=== PATIENT | male | born 1950 | race Caucasian/White ===

== ENCOUNTER 2025-06-03 16:35 | Inpatient (IN) | payer MEDICARE, MEDICAID ==
[~2025-06-03] VITALS: Ht 170.2 cm; Wt 78.9 kg
[2025-06-03 17:27] LABS: PLATELET COUNT (AUTO) 209 K/uL (152-348); RED BLOOD CELL COUNT(AUTO) 2.77 MIL/uL (4.06-5.63); RED CELL DISTRIBUTION WIDTH 13.4 % (12.1-16.2); WHITE BLOOD COUNT (AUTO) 4.8 K/uL (3.6-10.2)
[2025-06-03 17:39] LABS: ASPARTATE AMINOTRANSFERASE 10 U/L (15-37); CREATININE 1.4 mg/dL (0.6-1.3); SODIUM SERUM 138 mmol/L (136-145); TOTAL PROTEIN, SERUM 6.3 g/dL (6.4-8.2); UREA NITROGEN, BLOOD 23 mg/dL (7-18)
[2025-06-03] MEDS: IV D5 1/2 NS 1000 ML 1,000 ML IV ONE (17:47)
[2025-06-03] MEDS ORDERED: DEXTROSE 50% 50 ML DISP.SYRIN ONE (18:15)
[2025-06-03] MEDS: DEXTROSE 50% 50 ML DISP.SYRIN IV ONE (18:19)
[2025-06-03] MEDS ORDERED: INSULIN REGULAR, HUMAN 1000 UNIT/10 ML VIAL SQ PRN (19:15)
[2025-06-03] MEDS ORDERED: ONDANSETRON 4 MG/2 ML VIAL IV PRN (19:15)
[2025-06-03] MEDS ORDERED: ACETAMINOPHEN 325 MG TABLET PO PRN (19:15)
[2025-06-03] MEDS ORDERED: REMEDY ESSENTIAL ZINC PASTE 113 GM TP PRN (19:15)
[2025-06-03] MEDS ORDERED: MAGNESIUM HYDROXIDE 30 ML LIQUID UDC PO PRN (19:15)
[2025-06-03 20:30] VITALS: BP 136/71; TEMP 98.3; O2SAT 100
[2025-06-03] MEDS: IV D5/ 0.9% NACL 1,000 ML IV PRN (21:13)
[2025-06-03] MEDS: BLOOD SUGAR DIAGNOSTIC 1 EACH STRIP VI SCH (21:38)
[2025-06-03] MEDS: DEXTROSE 50% 50 ML DISP.SYRIN IV PRN (21:38)
[2025-06-03] MEDS ORDERED: MAGNESIUM SULFATE/D5W 100 ML ONE (22:25)
[2025-06-03] MEDS: MAGNESIUM SULFATE/D5W 100 ML IV SCH (22:34)
[2025-06-04] VITALS: BP 118/60; TEMP 97.5; O2SAT 96
[2025-06-04 04:00] VITALS: BP 128/59; TEMP 97.9; O2SAT 99
[2025-06-04] MEDS: PANTOPRAZOLE SODIUM 40 MG TABLET.DR PO SCH (06:30)
[2025-06-04 06:50] LABS: PLATELET COUNT (AUTO) 200 K/uL (152-348); RED BLOOD CELL COUNT(AUTO) 2.81 MIL/uL (4.06-5.63); RED CELL DISTRIBUTION WIDTH 13.1 % (12.1-16.2); WHITE BLOOD COUNT (AUTO) 3.9 K/uL (3.6-10.2)
[2025-06-04 07:11] LABS: CREATININE 1.3 mg/dL (0.6-1.3); SODIUM SERUM 139 mmol/L (136-145); UREA NITROGEN, BLOOD 18 mg/dL (7-18)
[2025-06-04 07:49] VITALS: BP 114/46; TEMP 97.6; O2SAT 98
[2025-06-04] MEDS ORDERED: METF-442 PO (10:52)
[2025-06-04] MEDS ORDERED: METO-356 PO (10:52)
[2025-06-04] MEDS ORDERED: FINA5TAB11 PO (10:52)
[2025-06-04] MEDS ORDERED: LEVO25TA9 PO (10:52)
[2025-06-04] MEDS ORDERED: ESCI10TA PO (10:52)
[2025-06-04] MEDS ORDERED: TAMS-3 PO (10:52)
[2025-06-04] MEDS ORDERED: LISI-782 PO (10:52)
[2025-06-04] MEDS ORDERED: ATOR80TA PO (10:52)
[2025-06-04] MEDS ORDERED: PANT40TA2 PO (10:52)
[2025-06-04] MEDS ORDERED: EZET10TA15 PO (10:52)
[2025-06-04] MEDS ORDERED: MAGNESIUM OXIDE 400 MG TABLET PO ONE (11:00)
[2025-06-04] MEDS: MAGNESIUM OXIDE 400 MG TABLET PO ONE (11:06)
[2025-06-04 14:39] VITALS: BP 119/55; TEMP 97.6; O2SAT 98
[2025-06-04 16:20] VITALS: BP 109/50; TEMP 97.6; O2SAT 97
[2025-06-04 19:00] VITALS: BP 123/63; TEMP 97.8; O2SAT 96
[2025-06-05] VITALS: BP 121/61; TEMP 98.2; O2SAT 99
[2025-06-05 04:00] VITALS: BP 127/46; TEMP 98; O2SAT 96
[2025-06-05 07:29] LABS: CREATININE 1.2 mg/dL (0.6-1.3); SODIUM SERUM 140 mmol/L (136-145); UREA NITROGEN, BLOOD 12 mg/dL (7-18)
[2025-06-05 07:52] VITALS: BP 111/36; TEMP 98.9; O2SAT 98
[2025-06-05] MEDS: METFORMIN HCL 500 MG TABLET PO SCH (09:31)
[2025-06-05] MEDS: EZETIMIBE 10 MG TABLET PO SCH (09:32)
[2025-06-05] MEDS: LEVOTHYROXINE SODIUM 25 MCG TABLET PO SCH (09:32)
[2025-06-05] MEDS: MAGNESIUM OXIDE 400 MG TABLET PO ONE (11:40)
[2025-06-05 11:56] VITALS: BP 150/66; TEMP 97.9; O2SAT 99
[2025-06-05] MEDS ORDERED: ATORVASTATIN 40 MG TABLET PO SCH (21:00)
[2025-06-05] MEDS ORDERED: TAMSULOSIN HCL 0.4 MG CAP.SR.24H PO SCH (21:00)
[2025-06-06] MEDS ORDERED: PANTOPRAZOLE SODIUM 40 MG TABLET.DR PO SCH (07:00)
[2025-06-06] MEDS ORDERED: METOPROLOL SUCCINATE XL 25 MG TAB.SR.24H PO SCH (09:00)
[2025-06-06] MEDS ORDERED: LISINOPRIL 5 MG TABLET PO SCH (09:00)
[2025-06-06] MEDS ORDERED: ESCITALOPRAM OXALATE 10 MG TABLET PO SCH (09:00)
[2025-06-06] MEDS ORDERED: FINASTERIDE 5 MG TABLET PO SCH (09:00)
== END 2025-06-05 13:15 | DRG 637 ==
LOC: ER 16:35 → TELE3 19:15 → MEDSURG3 06-05 11:22
PROVIDERS: ADMIT Nurse Practitioner Acute Care; ATTEND Nurse Practitioner Acute Care
DX: E11.649 Type 2 diabetes mellitus with hypoglycemia without coma (principal); G93.41 Metabolic encephalopathy; T38.3X5A Adverse effect of insulin and oral hypoglycemic [antidiabetic] drugs, initial encounter; N17.0 Acute kidney failure with tubular necrosis; E16.A3 Hypoglycemia level 3; Y92.099 Unspecified place in other non-institutional residence as the place of occurrence of the external cause; E78.5 Hyperlipidemia, unspecified; K21.9 Gastro-esophageal reflux disease without esophagitis; I12.9 Hypertensive chronic kidney disease with stage 1 through stage 4 chronic kidney disease, or unspecified chronic kidney disease; N18.9 Chronic kidney disease, unspecified; E11.22 Type 2 diabetes mellitus with diabetic chronic kidney disease; E86.0 Dehydration; E83.42 Hypomagnesemia; Z79.84 Long term (current) use of oral hypoglycemic drugs; Z86.73 Personal history of transient ischemic attack (TIA), and cerebral infarction without residual deficits; Z79.899 Other long term (current) drug therapy
CPT/HCPCS: 36415; 83735; 84100; 84443; 85025; G0378; J3475; J3490; J7042